=== PATIENT | female | born 1960 | race Caucasian/White ===

== ENCOUNTER → 2020-07-24 | Outpatient (CLI) | payer OTHER ==
[~2020-07-24] MED LIST: FLAGYL500 MG PO; PRINIVIL10 MG PO
[2020-07-24 10:24] LABS: HEMOGLOBIN 14.8 gm/dl (12.3-15.3); RED BLOOD COUNT 4.86 M/UL (4.00-5.10); WHITE BLOOD COUNT 10.3 K/UL (4.5-11.0)
[2020-07-24 11:08] LABS: BUN/CREATININE RATIO 29 (0-10)
[2020-07-25 18:12] LABS: CHOLESTEROL, TOTAL 199 mg/dL (100-199); HDL SIZE 9.5 nm (>=9.2); HDL-C 54 mg/dL (>39); HDL-P (TOTAL) 32.1 umol/L (>=30.5); LARGE VLDL-P 2.4 nmol/L (<=2.7); LDL SIZE 20.8 nm (>20.5); LDL SIZE 20.8 nm (>=20.8); LDL-C 124 mg/dL (0-99); LDL-P 1438 nmol/L (<1000); LP-IR SCORE 33 (<=45); SMALL LDL-P 545 nmol/L (<=527); TRIGLYCERIDES 118 mg/dL (0-149); VLDL SIZE 42.7 nm (<=46.6)
== END ==
LOC: LAB 09:19
PROVIDERS: Emergency Medicine
DX: I10 Essential (primary) hypertension (principal); E78.2 Mixed hyperlipidemia; R63.4 Abnormal weight loss; R53.83 Other fatigue
CPT/HCPCS: 36415; 80053; 80061; 83704; 84443; 85025

== ENCOUNTER → 2021-03-27 | Outpatient (CLI) | payer OTHER | LOC: EXRD 15:11 | DX: I63.9 Cerebral infarction, unspecified (principal) | CPT/HCPCS: 93880 ==